=== PATIENT | male | born 1985 | race Caucasian/White ===

== ENCOUNTER 2022-01-10 01:58 | Day surgery (SDC) | payer OTHER, SELFPAY ==
[2022-01-08 08:44] VITALS: BMI 28.5
--- NOTE | 2022-01-08 08:48 | SUR.PREOP ---
Report to the Outpatient Waiting Room, entrance under the green pavilion located off [facility], at time 1230 on date 01/10/22. OR Time: 1430. - You and your visitor will be asked to self-screen and do not enter if you have any COVID symptoms. - Only one visitor and NO children visitors are allowed at this time. - The patient visitor is requested to leave or wait in car when not with patient due to restrictions. - A mask is required within the hospital. Patients may have clear liquids (water, carbonated beverages, clear teas, apple juice) until 3 hours prior to surgery with a maximum of 20 ounces. - No food from midnight until time of surgery - Infants may have breast milk until 4 hours before surgery, formula 6 hours prior to surgery. - Children will be allowed to drink immediately following surgery. If applicable, please bring a bottle or sippy cup to assist with drinking. Juice, water, soda, and popsicles are readily available. For infants on formula, please bring formula the day of surgery. Pacifiers are allowed. Take the following medications with a SIP of water the morning of surgery: ____N/A Medications to discontinue per physician N/A Date to take last dose Please no make-up, nail italian, hairspray, perfume, deodorant, or body powder the day of surgery. No jewelry (including any body piercings) or valuables the day of surgery, leave them at home. Please take a shower or bath the night before, or the morning of, surgery with an antibacterial soap. Wear comfortable, loose fitting clothing. Children are encouraged to wear pajamas. USE HIBICLENS MORNING OF SURGERY. USE DIRECTED - Jewelry must be removed prior to entering the operating room. Rings and piercings that are not removed may be cut off. - The hospital will not accept responsibility for valuables. - Please leave all valuables, including medications, at home the day of surgery. If you are going home after surgery, a licensed laundry route driver must drive you home. - NO public transportation without another adult. - We recommend that an adult stay with you for 24 hours following discharge. - We also recommend that you do not drive, make important decision, drink alcoholic beverages, or take any drugs that were not prescribed by your health care provider for at least 24 hours after your discharge time. For Pediatric surgeries, we recommend two adults accompany the child home (only one inside the building at this time). Follow any additional instructions given to you from your surgeon. If you or anyone in your household have experienced Covid symptoms in the past week, please notify your surgeon or the nurse liaison at the phone number below for possible testing. Telephone instructions given to PATIENT and asked if any additional questions and then verbalized understanding. Patient advised to call surgeon office or pre surgery nurse liaison [phone] if any additional questions.
[2022-01-10] VITALS (11 sets, daily range): BP systolic 117–146; BP diastolic 72–87; PULSE 59–70; RESP 10–18; TEMP 36.2–36.6; O2SAT 97–100
--- NOTE | 2022-01-10 07:18 | WPDHPUPDATE1 ---
History and Physical Update Update Date/Time: 01/10/22 07:18 History and Physical has been reviewed, including an updated exam of the patient. There are NO changes in the patient's condition. Risks, benefits, and alternatives have been discussed and questions answered. Patient agrees to proceed with procedure.
[2022-01-10] MEDS: KETOROLAC 15 MG/ML VIAL (*BKC) IV PUSH (08:30)
[2022-01-10] MEDS: ACETAMINOPHEN 500 MG TABLET 1000 MG PO (08:30)
[2022-01-10] MEDS: LACTATED RINGERS 1,000 ML 30 ML IV CONT ×2 (08:37→11:41)
--- NOTE | 2022-01-10 09:37 | WPDANESEPPF ---
Anes - Initial Pre Proc Eval Procedure: Operation Date: 01/10/22 10:00 Proposed Procedures p Robotic Assisted Umbilical Hernia Repair with Mesh - Jennifer Vazquez MD Date/Time: 01/10/22 09:37 Surgeon: Jennifer Vazquez MD Pre Op Diagnosis: umbilical hernia Pre Op Diagnosis: umbilical hernia Patient Data Age: 36 Gender: M Height: 1.78 m Weight: 90.2 kg Last Vital Signs Temp 36.2 C L 01/10/22 09:04 Pulse 70 01/10/22 09:04 Resp 18 01/10/22 09:04 BP 129/86 01/10/22 09:04 Pulse Ox 98 01/10/22 09:04 O2 Del Method Room Air 01/10/22 09:04 Allergies Allergy/AdvReac Type Severity Reaction Status Date / Time No Known Allergies Allergy Verified 01/10/22 09:00 Home Medications Medication Instructions Recorded Confirmed Type No Home Medications 12/11/21 01/10/22 History Patient hx anesthesia problems: none Family hx anesthesia problems: none Results Review: All pre-operative results and documents have been reviewed as part of the pre-operative evaluation. [facility] Past Medical History Medical History Asthma Surgical History Surgical History H/O inguinal hernia repair Left Family History Family History Mother Hypertension Obesity Social History Social History Social History: everyday caffeine use- coffee/energy drink Smoking status: Never smoker Alcohol intake: current Drinks per week: 12 Alcohol use details: social use- beer/vodka Substance use: never Substance use type: does not use Living arrangements: with family Additional living arrangements comments: Patient lives with girlfriend. 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 Gender identity (if verbalized by the patient): Male Sexual Orientation (if Verbalized by the Patient): Straight or Heterosexual Spiritual care concerns: No Anes - Eval Final PreProcedure Day of Procedure 01/10/22 09:37 Heart: regular rate and rhythm Lungs: clear to auscultation Airway: Mallampati scale class II Neurological: alert and oriented Last oral intake: >/= 8 hours ASA classification: II Anesthetic plan: proceed Anesthesia type and monitoring: general and standard monitoring Results Review: All pre-operative results and documents have been reviewed as part of the pre-operative evaluation. Informed Consent: The patient's anesthetic plan and its attendant risks and benefits were discussed with the patient/family/POA. Questions were solicited and answers provided to the satisfaction of the patient/family/POA.
[2022-01-10] MEDS: ceFAZolin 2 GM/D5W 50 ML 2 GM/50 ML BAG IVPB (09:43)
[2022-01-10] MEDS: BUPIVACAINE/EPINEPHRINE 0.25% 50 ML VIAL 30 ML INFILTRATE (10:15)
--- NOTE | 2022-01-10 11:34 | P.OP_ITS ---
Procedure Note - Detailed Date of Procedure 01/10/22 Pre-op Diagnosis umbilical hernia Post-op Diagnosis Same Procedure Performed Robotic assisted repair umbilical hernia with mesh Surgeon Jennifer Vazquez MD Anesthesia General Indications 36 y/o M presenting c moderate sized symptomatic umbilical hernia Findings 3 cm umbilical hernia c incarcerated preperitoneal fat Description of Procedure The patient was taken the operating room placed in the supine position. After adequate induction of general anesthesia, the patient was prepped and draped in normal sterile fashion. A time-out was then done to verify the patient's identity as well as the procedure being performed. I began by making a 5 mm incision in the left upper quadrant. Through this, a Veress needle was placed into the peritoneal cavity and CO2 gas was insufflated. After adequate pneumoperitoneum was achieved, a 5 mm trocar was placed through this incision. I then placed the laparoscope through this trocar site and under direct visu alization I placed a 8 mm port in the left mid abdomen as well as an additional 8 mm port in the left lower abdomen. I then moved the camera to the lower port and replaced the 5 mm port with a 12 mm airport. The robot was then docked to the 3 port sites. I then went to the robotic console. I began by identifying the hernia. A moderate-sized incarcerated umbilical hernia was noted. I created a preperitoneal flap approximately 6 cm lateral to the hernia. This flap was carried widely superior and inferior to the defect. I then was able to reduce this hernia. The hernia was noted to contain a large amount of preperitoneal fat. Once reduced, I also reduced and dissected out the hernia sac. I then carried the flap distally past the hernia. I then closed the approximately 3 cm defect with 0 strata fix suture. I then placed a 4.[address] mesh into the abdominal cavity. The positional stitch was placed in the middle of the mesh and brought up centering the mesh over the defect. Once this was done, I used 2 0 V lock suture x 2 to circumferentially suture the mesh to the abdominal wall. Once the mesh was completely sutured in, I was happy with our tension-free repair. The mesh was noted to have good overlap of the defect. I then removed the positioning device. I then closed the flap with 2 0 V lock. At this point, the robot was undocked and all ports w ere removed. I then closed the 12 mm port site with an 0 Vicryl [id number] suture at the fascial level. All port sites were then closed with 4 O Monocryl subcuticular suture. The patient tolerated the procedure well, is extubated in the operating room postoperative, and will be transferred to the recovery room in stable condition. Implants 4.6 in round ventralight mesh Estimated Blood Loss 10 Drains No Packing No Pathology None sent Complications No immediate complications Condition Stable Disposition PACU [facility] Billing Surgery - Charge Forward: Surgery Billing
[2022-01-10] MEDS: fentaNYL CITRATE INJ (*CRX) 100 MCG/2 ML VIAL 25 MCG IV PUSH ×5 (11:56→13:27)
[2022-01-10] MEDS: oxyCODONE HCL (*CRX) 5 MG TAB IR PO (12:50)
--- NOTE | 2022-01-10 13:44 | SUR.PHASEII ---
[facility] CALLED TO VERIFY MED STATUS. PHARMACIST STATES SCRIPTS BEING FILLED.
--- NOTE | 2022-01-10 15:41 | SUR.PHASEII ---
[facility] CALLED SAYING THAT THEY DIDN'T RECEIVE SCRIPT FOR HYDROCODONE WITH TYLENOL. DR. STEELE'S OFFICE CALLED; CASTING SUPERVISOR STATED SHE WOULD CONTACT DR. STEELE AND RESOLVE THIS PROBLEM AND WILL KEEP PATIENT POSTED. [facility] CALLED TO RELAY THIS TO THEM.
== END 2022-01-10 14:26 | disposition home or self-care (01) ==
PROVIDERS: Visit Provider Surgery
PROC: (CPT 49652; principal; 2022-01-10 10:00)
DX: K42.9 Umbilical hernia without obstruction or gangrene (principal)
CPT/HCPCS: 49652; 36415; 86850; 86900; 86901; A9270; C1781; J0690; J1100; J1885; J2250; J2405; J2704; J2710; J3010; J7120

== ENCOUNTER 2022-01-17 07:55 | Outpatient (CLI) | payer OTHER, SELFPAY ==
--- NOTE | ~2022-01-17 | CT_ITS ---
EXAMINATION: CT abdomen wo con DATE: 01/17/2022 08:27 INDICATION: Nausea, recent hernia surgery TECHNIQUE: Computed tomography (CT) of the abdomen was performed without intravenous contrast. The do se-length product (DLP) was 272.74 mGy-cm. Automated exposure control and iterative reconstruction te chnique were employed. COMPARISON: None FINDINGS: The lung bases are clear. The heart size is normal. There is any millimeters cyst in the ot herwise normal liver. The spleen, pancreas, gallbladder, and adrenal glands are normal. The kidneys a re unremarkable. There are dilated loops of small bowel which continue to the level of the umbilicus beyond which the small bowel is decompressed. There is no free intraperitoneal gas. There are no path ologically enlarged abdominal lymph nodes. IMPRESSION: 1. Dilated small bowel with transition point in the umbilicus, consistent with small bowel obstructio n. Reviewed, dictated and finalized at location B. IMPRESSION: 1. Dilated small bowel with transition point in the umbilicus, consistent with small bowel obstruction.
== END 2022-01-17 07:56 | disposition home or self-care (01) ==
PROVIDERS: Visit Provider Surgery
DX: R11.0 Nausea (principal); Z87.19 Personal history of other diseases of the digestive system; Z98.890 Other specified postprocedural states; K42.9 Umbilical hernia without obstruction or gangrene
CPT/HCPCS: 74150

== ENCOUNTER 2022-01-18 03:37 | Day surgery (SDC) | payer OTHER, SELFPAY ==
[2022-01-17 14:21] VITALS: BMI 27.5
--- NOTE | 2022-01-17 14:29 | PC.NURSE ---
Report to the Outpatient Waiting Room, entrance under the green pavilion located off [facility], at time 0800 on date 01/18/22. OR Time: 1000. Time changes happen often and if your time is changed the preop area will call you the afternoon before. - You and your visitor will be asked to self-screen and do not enter if you have any COVID symptoms. - Only one visitor and NO children visitors are allowed at this time. - The patient visitor is requested to leave or wait in car when not with patient due to restrictions. - A mask is required within the hospital. Patients may have clear liquids (water, carbonated beverages, clear teas, apple juice) until 3 hours prior to surgery with a maximum of 20 ounces. - No food from midnight until time of surgery Take the following medications with a SIP of water the morning of surgery: NONE Medications to discontinue per physician: N/A Date to take last dose: N/A Please no make-up, nail nigerian, hairspray, perfume, deodorant, or body powder the day of surgery. No jewelry (including any body piercings) or valuables the day of surgery, leave them at home. Please take a shower or bath the night before, or the morning of, surgery with an antibacterial soap. Wear comfortable, loose fitting clothing. - Jewelry must be removed prior to entering the operating room. Rings and piercings that are not removed may be cut off. - The hospital will not accept responsibility for valuables. - Please leave all valuables, including medications, at home the day of surgery. If you are going home after surgery, a licensed [place] driver must drive you home. - NO public transportation without another adult. - We recommend that an adult stay with you for 24 hours following discharge. - We also recommend that you do not drive, make important decision, drink alcoholic beverages, or take any drugs that were not prescribed by your health care provider for at least 24 hours after your discharge time. Follow any additional instructions given to you from your surgeon. If you or anyone in your household have experienced Covid symptoms in the past week, please notify your surgeon or the nurse liaison at the phone number below for possible testing. Telephone instructions given to PT - IMANI DOMINGUEZ and asked if any additional questions and then verbalized understanding. Patient advised to call surgeon office or pre surgery nurse liaison [phone] if any additional questions.
[2022-01-18] VITALS (15 sets, daily range): BP systolic 112–176; BP diastolic 67–101; PULSE 81–119; RESP 12–20; TEMP 36.3–36.9; O2SAT 95–100; BMI 26.4
[2022-01-18] MEDS: ACETAMINOPHEN 500 MG TABLET 1000 MG PO (08:59)
[2022-01-18] MEDS: LACTATED RINGERS 1,000 ML 30 ML IV CONT ×2 (09:00→10:54)
--- NOTE | 2022-01-18 09:07 | WPDHPUPDATE1 ---
History and Physical Update Update Date/Time: 01/18/22 09:07 History and Physical has been reviewed, including an updated exam of the patient. There are NO changes in the patient's condition. Risks, benefits, and alternatives have been discussed and questions answered. Patient agrees to proceed with procedure. CT scan reviewed showing small bowel obstruction, will proceed with diagnostic laparoscopy, possible bowel resection.
[2022-01-18] MEDS: KETOROLAC 15 MG/ML VIAL (*BKC) IV PUSH (09:10)
--- NOTE | 2022-01-18 09:23 | P.PNAN_ITS ---
Anes - Initial Pre Proc Eval Procedure: Operation Date: 01/18/22 10:00 Proposed Procedures p Diagnostic Laparoscopy, Possible Bowel Resection - Jennifer Vazquez MD Date/Time: 01/18/22 09:23 Surgeon: Jennifer Vazquez MD Pre Op Diagnosis: small bowel obstruction Patient Data Age: 36 Gender: M Height: 1.78 m Weight: 87 kg Allergies Allergy/AdvReac Type Severity Reaction Status Date / Time No Known Allergies Allergy Verified 01/18/22 08:43 Home Medications Medication Instructions Recorded Confirmed Type docusate sodium 100 mg capsule 100 mg PO BID #20 caps 01/10/22 01/18/22 Rx (Colace) ondansetron 4 mg disintegrating 4 mg PO Q6H PRN nausea and 01/14/22 01/18/22 Rx tablet vomiting #20 tabs Patient hx anesthesia problems: none Family hx anesthesia problems: none Results Review: All pre-operative results and documents have been reviewed as part of the pre- operative evaluation. [facility] Past Medical History Medical History Asthma Surgical History Surgical History H/O inguinal hernia repair Left Hx of umbilical hernia repair Robotic assisted repair umbilical hernia with mesh 01/10/22 Family History Family History Mother Hypertension Obesity Social History Social History Social History: everyday caffeine use- coffee/energy drink Smoking status: Never smoker Alcohol intake: current Drinks per week: 12 Alcohol use details: social use- beer/vodka Substance use: never Substance use type: does not use Living arrangements: with family Additional living arrangements comments: Patient lives with girlfriend. 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 Gender identity (if verbalized by the patient): Male Sexual Orientation (if Verbalized by the Patient): Straight or Heterosexual Spiritual care concerns: No Anes - Eval Final PreProcedure Day of Procedure 01/18/22 09:23 Patient weight: overweight Heart: regular rate and rhythm Lungs: clear to auscultation Airway: Mallampati scale class II Neurological: alert and oriented Last oral intake: >/= 8 hours ASA classification: II Emergent: no Anesthetic plan: proceed Anesthesia type and monitoring: general ETT and standard monitoring Results Review: All pre-operative results and documents have been reviewed as part of the pre- operative evaluation. Informed Consent: The patient's anesthetic plan and its attendant risks and benefits were discussed with the patient/family/POA. Questions were solicited and answers provided to the satisfaction of the patient/family/POA.
--- NOTE | 2022-01-18 09:28 | SUR.PREOP ---
0900-PT'S UMBILICAL SURGICAL SITE FROM 01/10/22 NOTED TO HAVE SEROUS DRAINAGE, AREA COVERED WITH 2X2. PT. STATES FEELS DEHYDRATED OVER PAST WEEK, DISCUSSED WITH DR. CARRERA AND WILL INCREASE IVF. FEELS HOT AND SWEATY ON MY LEGS AT THIS TIME. SCD SLEEVES PLACED ON CART FOR OR BUT NOT INITIATED AT THIS TIME.
[2022-01-18] MEDS: ceFAZolin 2 GM/D5W 50 ML 2 GM/50 ML BAG IVPB (09:54)
[2022-01-18] MEDS: BUPIVACAINE/EPINEPHRINE 0.25% 50 ML VIAL 30 ML INFILTRATE (10:38)
--- NOTE | 2022-01-18 10:55 | W.PM.PROC2 ---
Procedure Note - Detailed Date of Procedure 01/18/22 Pre-op Diagnosis small bowel obstruction Post-op Diagnosis Same Procedure Performed Diagnostic laparoscopy, reduction of small bowel obstruction, excision previous peritoneal flap Surgeon Jennifer Vazquez MD Anesthesia General Indications 36-year-old male status post robotic [place] for ventral hernia repair presenting with small-bowel obstruction Findings unraveling of previous peritoneal flap closure with loop of small bowel incarcerated within previous flap Description of Procedure The patient was taken to the operating room placed in the supine position. After adequate induction of general anesthesia, the patient was prepped and draped in the normal sterile fashion. A time-out was then done to verify patient's identity, as well as the procedure being performed. I began by making a 5 mm incision in the left mid abdomen through a previous port site. A Veress needle was then placed into the peritoneal cavity and CO2 gas was then insufflated. After adequate pneumoperitoneum was achieved, the Veress needle was removed and a 5 mm Optiview trocar was placed visualization. The laparoscope was then placed through this port site and upon examination of the abdomen, there was noted to be a loop of small intestine through a rent in the previous peritoneal flap closure. There was noted to be unraveling of the previously placed 2 0 V lock suture. Then placed a further 5 mm port in the left lower abdomen, as well as a 12 mm port in the left upper abdomen. I was then able to gently reduce the loop of small intestine that was incarcerated in flap. Once reduced, I examined the small bowel which was noted to be viable. The entirety of the small bowel was run and visualized and noted to be unremarkable. At this point, I used absorbable tacks to try to tack the peritoneal opening. Upon doing this, the flap was noted to be very friable and multiple small rents were noted from the Tacker. Given this, I just went ahead and excised the previous peritoneal flap, including excision of the previous stich. Of note, the previously placed coated mesh was well incorporated to the anterior abdominal wall. Once the peritoneum was excised, I placed Endo pouch through the 12 mm port site and removed the excised peritoneum through the bag. I then examined the abdominal cavity and no other pathology was noted. I then and closed the 12 mm port site with a Isidro cone and 0 Vicryl stitch under direct visualization. The abdomen was then desufflated and all ports were removed. The incisions were then all closed with 4-0 Monocryl subcuticular suture and Dermabond was placed on all wounds. The patient tolerated the procedure well and was extubated postop. He will transfered the recovery room in stable condition.
[2022-01-18] MEDS: fentaNYL CITRATE INJ (*CRX) 100 MCG/2 ML VIAL 25 MCG IV PUSH ×2 (11:10→11:12)
--- NOTE | 2022-01-18 12:39 | ADMGEN ---
This patient, Nima Cheung, was admitted to Medical Room 245-. Patient/family oriented to hospital policies and general routines including ID bracelet, bed and alarms, visiting hours, pain management, procedures, bathroom and other care routines, personal items, smoking policy, room service/diet, and visiting hours. Information on how to activate the Rapid Response Team has been discussed. Patient/Family are encouraged to report perceived risks to care and to ask questions if they do not understand what they are told or what they should do.
[2022-01-18 13:28] LABS: Estimated CRCL calculation 91 ml/min; Estimated Glomerular Filt Rate > 60
[2022-01-18] MEDS: LACTATED RINGERS 1,000 ML 100 ML IV CONT (14:01)
[2022-01-18] MEDS: DOCUSATE SODIUM 100 MG CAPSULE PO (16:58)
[2022-01-18] MEDS: HYDROcodone/acetaminophen (*CRX) 5-325 MG TABLET 1 TAB PO (21:04)
[2022-01-19 01:02] VITALS: BP 140/89; PULSE 85; RESP 16; TEMP 37; O2SAT 97
[2022-01-19 05:18] VITALS: BP 119/74; PULSE 72; RESP 16; TEMP 36.8; O2SAT 97
[2022-01-19 05:44] LABS: Hematocrit 39.8 % (42.0-52.0); Hemoglobin 13.9 g/dL (14.0-18.0); Mean Corpuscular HGB Conc 34.9 g/dl (32-36); Mean Corpuscular Volume 88.8 fl (80-100); Mean Platelet Volume 9.2 fl (7.4-10.4); Platelet Count Result 277 k/mm3 (150-375); Red Blood Count 4.48 M/mm3 (4.6-6.20); Red Cell Distribution Width 11.3 % (11.5-14.5); White Blood Count 8.9 K/mm3 (4.5-10.0)
[2022-01-19 05:57] LABS: Anion Gap 9 mmol/L (8-16); Blood Urea Nitrogen 18 mg/dL (9-20); Calcium 8.4 mg/dL (8.4-10.2); Carbon Dioxide 30 mmol/L (22-30); Chloride 94 mmol/L (98-107); Estimated CRCL calculation 113 ml/min; Estimated Glomerular Filt Rate > 60; Glucose 99 mg/dL (65-110); Potassium 2.9 mmol/L (3.4-5.0); Sodium 133 mmol/L (137-145)
--- NOTE | 2022-01-19 07:38 | WPDANESPN ---
Anes - Prog Note Post-Op Date/Time: 01/19/22 07:38 Cardiovascular status: normal Respiratory status: normal Airway patency: baseline Mental status: baseline Post-Op hydration status: normal Vital Signs: Last Vital Signs Temp 36.8 C 01/19/22 05:18 Pulse 72 01/19/22 05:18 Resp 16 01/19/22 05:18 BP 119/74 01/19/22 05:18 Pulse Ox 97 01/19/22 05:18 O2 Del Method Room Air 01/18/22 12:10 O2 Flow Rate 8 01/18/22 11:20 Pain Score (VAS): 06/14 I/O: Intake & Output 01/18/22 01/18/22 01/19/22 15:59 23:59 07:59 Intake Total 233 242 9791 Output Total 1500 Balance 300 790 250 Laboratory Tests 01/19/22 05:09 01/19/22 05:09 01/18/22 01/18/22 01/19/22 09:47 12:55 05:09 WBC 8.9 RBC 4.48 L Hgb 13.9 L Hct 39.8 L MCV 88.8 MCH 31.0 MCHC 34.9 RDW 11.3 L Plt Count 277 MPV 9.2 Sodium Potassium Chloride Carbon Dioxide Anion Gap BUN Creatinine 1.00 Estim Creat Clear Calc 91 Estimated GFR > 60 Glucose Calcium Blood Type O Positive Antibody Screen Negative 01/19/22 05:09 WBC RBC Hgb Hct MCV MCH MCHC RDW Plt Count MPV Sodium 133 L Potassium 2.9 L Chloride 94 L Carbon Dioxide 30 Anion Gap 9 BUN 18 Creatinine 0.80 Estim Creat Clear Calc 113 Estimated GFR > 60 Glucose 99 Calcium 8.4 Blood Type Antibody Screen Post-procedural complaints: none Patient Feedback: Patient satisfied with anesthetic care.
[2022-01-19] MEDS: BENZOCAINE/MENTHOL (*BKC) 18 EA LOZENGE 1 LOZENGE PO (09:21)
[2022-01-19] MEDS: DOCUSATE SODIUM 100 MG CAPSULE PO (09:21)
[2022-01-19] MEDS: POTASSIUM CHLORIDE 20 MEQ TABLET 40 MEQ PO (09:21)
[2022-01-19 11:48] VITALS: BP 133/79; PULSE 75; RESP 18; TEMP 36.6; O2SAT 99
--- NOTE | 2022-01-19 13:00 | PM.DS ---
DS: Admitting Diagnosis Discharge Date 01/19/2022 Admitting Diagnosis postoperative small bowel obstruction DS: Discharge Diagnosis Discharge Diagnosis (1) Small bowel obstruction due to postoperative adhesions: Code(s): K91.30 - Postprocedural intestinal obstruction, unspecified as to partial versus complete Status: Acute Assessment and Plan: this was the main reason for admission. Patient had diagnostic laparoscopy with reduction of small bowel from the area of his previous hernia repair. There was also some peritoneum that was excised. 9see op note) (2) Umbilical hernia: Qualifiers: Obstruction and gangrene presence: without obstruction or gangrene Qualified Code(s): K42.9 - Umbilical hernia without obstruction or gangrene Code(s): K42.9 - Umbilical hernia without obstruction or gangrene Status: Acute Assessment and Plan: this was repaired originally with mesh. The mid mesh remains in place. This is now resolved and patient is in the postoperative. (3) Postoperative seroma: Status: Acute Assessment and Plan: I believe this is what is draining from between the mesh and his skin near the umbilicus. Patient will continue to carefully care for this using local wound care. He will call if any erythema begins to spread out from the site of his umbilical area. DS: Summary Hospital Course Reason for hospitalization: The patient was brought back into the hospital for a diagnostic laparoscopy which confirmed a loop of small bowel stuck in a flap of his previous umbilical hernia repair site. This was able be taken down laparoscopically and were relieved the small-bowel obstruction that was giving him his problems. (See op note).. Hospital Course: The patient was brought back into the hospital for a diagnostic laparoscopy which confirmed a loop of small bowel stuck in a flap of his previous umbilical hernia repair site. This was able be taken down laparoscopically and were relieved the small-bowel obstruction that was giving him his problems. (See op note). patient made an uneventful postoperative recovery. He was kept overnight for his diet was gradually advanced on the day of discharge he was up walking. He had minimal pain and did not take any further [place] after her 1 in the middle of the night. He is having some serosanguineous drainage from his umbilicus and this dressing was changed with him. Discussed with him cleansing it with peroxide prior to showering and going ahead and using his Hibiclens over the anterior abdomen only and showering. He will have a follow-up visit later this week with Dr. Vazquez. Status at Discharge Cognitive/behavioral status at discharge: Normal Functional status at discharge: independent ambulation Overall status at discharge: patient is not back to baseline Time Spent with Patient Time attestation: Total time spent providing and/or coordinating discharge services: Time spent: Less than 30 minutes Specific discharge activities: discussing postop precautions and advancement of diet. Exam Const: General: cooperative, comfortable, alert and awake Orientation/consciousness: patient oriented x3 HENMT: Head: normal to inspection Mouth: Yes moist mucous membranes Eyes: Sclera: sclerae normal Pupils: Equal, round and reactive pupils present Neck: Neck: normal visual inspection and no JVD Chest: Chest palpation & inspection: normal inspection of the chest Resp: Effort & Inspection: normal respiratory effort Auscultation: clear to auscultation bilaterally Cardio: Jugular venous distension: no JVD Rate: regular rate GI: Inspection: normal to inspection and incision ( Clean and dry except umbilicus (see below)) GI Palp: Yes abdominal tenderness ( Mild as expected) Auscultation: normal bowel sounds Other: At the umbilicus a dressing was removed. There is a small wound that is draining some serosanguineous fluid. ( ser
[2022-01-19] MEDS: FAMOTIDINE 20 MG TABLET 40 MG PO (13:37)
== END 2022-01-19 14:02 | disposition home or self-care (01) ==
LOC: ANHSURGERY 08:07 → ANH2MED 14:04
PROVIDERS: Visit Provider Surgery
PROC: (CPT 49653; principal; 2022-01-18 10:00)
DX: K91.30 Postprocedural intestinal obstruction, unspecified as to partial versus complete (principal); K43.6 Other and unspecified ventral hernia with obstruction, without gangrene
CPT/HCPCS: 49653; 36415; 80048; 82565; 85027; 86850; 86900; 86901; A9270; J0330; J0690; J1100; J1885; J2250; J2405; J2704; J2710; J3010; J7120